=== PATIENT | female | born 1965 | race Caucasian/White ===

== ENCOUNTER 2022-06-12 04:06 | Day surgery (SDC) | payer OTHER ==
[2022-06-09 10:13] VITALS: BMI 34.5
[~2022-06-12 04:06] MED LIST: IOHEXOL 300 MG/ML INFUS..BTL IV ONE
[2022-06-12] MEDS ORDERED: MIDAZOLAM HCL 2 MG/2 ML SINGLE DOSE VIAL ONE ×2 (07:37→08:11)
[2022-06-12] MEDS ORDERED: PROPOFOL 20 ML ONE (07:37)
[2022-06-12] MEDS ORDERED: GENTAMICIN SO4 80 MG/2 ML VIAL ONE (07:47)
[2022-06-12] MEDS ORDERED: ceFAZolin SODIUM 1 GM VIAL IVPB ONE (07:49)
[2022-06-12] MEDS ORDERED: GENTAMICIN SO4 80 MG/2 ML VIAL IVPB ONE (07:50)
[2022-06-12] MEDS ORDERED: IOHEXOL 300 MG/ML INFUS..BTL IV ONE (07:52)
[2022-06-12] MEDS ORDERED: FUROSEMIDE 40 MG/4 ML INJECTABLE VIAL ONE (08:08)
[2022-06-12] MEDS ORDERED: oxyCODONE HCL 5 MG TABLET PO PRN ×2 (08:28→08:37)
[2022-06-12] MEDS ORDERED: ONDANSETRON 4 MG/2 ML VIAL IVPUSH PRN (08:37)
[2022-06-12] MEDS ORDERED: LACTATED RINGERS SOLUTION 1,000 ML IV SCH (08:45)
[2022-06-12 10:06] VITALS: RESP 18
[2022-06-12 10:53] VITALS: BP 150/69; PULSE 66; TEMP 97.1
[2022-06-16 16:08] LABS: CA OXALATE MONOHYDR. 5 % (.); WEIGHT 2 mg (.)
== END 2022-06-12 11:30 | disposition home or self-care (01) ==
LOC: JASU-SURG 04:06
PROVIDERS: ATTEND Urology
PROC: 0TCB8ZZ Extirpation of Matter from Bladder, Via Natural or Artificial Opening Endoscopic (ICD-10-PCS; principal; 2022-06-12 07:30)
PROC: 0T768ZZ Dilation of Right Ureter, Via Natural or Artificial Opening Endoscopic (ICD-10-PCS; 2022-06-12 07:30)
DX: N20.0 Calculus of kidney (principal); N13.5 Crossing vessel and stricture of ureter without hydronephrosis
CPT/HCPCS: 36415; 76000-TC-FY; 82360; 88300-TC; 94760; C1758; C2617